=== PATIENT | female | born 1995 ===

== ENCOUNTER 2023-11-07 01:50 | Inpatient (IN) | payer OTHER, SELFPAY ==
[2023-11-07] VITALS (75 sets, daily range): BP systolic 96–156; BP diastolic 45–137; PULSE 32–110; RESP 20; TEMP 36.6–37.4; O2SAT 93–100; BMI 34.4
[2023-11-07] MEDS: LACTATED RINGERS 1,000 ML 125 ML IV CONT ×3 (02:45→05:23)
--- NOTE | 2023-11-07 02:49 | WPDANESEPP ---
Anes - Eval Pre Procedure Procedure: labor epidural Date/Time: 11/07/23 02:49 Surgeon: gilma Preop Diagnosis: pain during labor Pre Op Diagnosis: Labor Patient Data Age: 28 Gender: F Height: 1.52 m Weight: 80 kg Last Vital Signs Pulse 83 11/07/23 02:31 BP 151/104 H 11/07/23 02:31 Allergies Allergy/AdvReac Type Severity Reaction Status Date / Time No Known Allergies Allergy Verified 11/07/23 02:47 Patient hx anesthesia problems: none Family hx anesthesia problems: none Results Review: All pre-operative results and documents have been reviewed as part of the pre-operative evaluation. [facility] Past Medical History Medical History (Updated 11/07/23 @ 02:50 by Loyda John CRNA) Intrauterine Obesity (BMI 30.0-34.9) Exam Day of Procedure 11/07/23 02:49
[2023-11-07 03:04] LABS: Basophils Percent Auto 0.3 % (0.2-1.2); Eosinophils Absolute Auto 0.1 K/mm3 (0-0.3); Eosinophils Percent Auto 0.6 % (0-4.4); Hematocrit 37.6 % (37.0-47.0); Hemoglobin 12.6 g/dL (12.0-15.0); Immature Granulocyte Absolute 0.03 K/mm3 (0.00-0.031); Immature Granulocyte Percent A 0.4 % (0-0.5); Lymphocytes Absolute Auto 1.77 K/mm3 (0.9-3.2); Lymphocytes Percent Auto 22.5 % (18.3-44.2); Mean Corpuscular HGB Conc 33.5 g/dl (32-36); Mean Corpuscular Volume 86.4 fl (80-100); Mean Platelet Volume 10.3 fl (7.4-10.4); Monocytes Absolute Auto 0.6 K/mm3 (0.1-0.6); Monocytes Percent Auto 7.9 % (2.6-8.5); Neutrophils Absolute Auto 5.4 K/mm3 (1.3-6.7); Neutrophils Percent Auto 68.3 % (45.5-73.1); Platelet Count Result 186 k/mm3 (150-375); Red Blood Count 4.35 M/mm3 (4.2-5.4); Red Cell Distribution Width 14.5 % (11.5-14.5); White Blood Count 7.9 K/mm3 (4.5-10.0)
--- NOTE | 2023-11-07 03:25 | LDADM ---
This patient, Rhea Manzano, was admitted to Labor/Delivery/Recovery 105 on 11/07/23 at 01:50. Plans for labor, pain management and were discussed with patient. Patient/family oriented to hospital policies and general routines including ID bracelet, bed and alarms, visiting hours, pain management, procedures, bathroom and other care routines, personal items, smoking policy, room service/diet and guest tray routines, security routines, and visiting hours. Patient/Family are encouraged to report perceived risks to care and to ask questions if they do not understand what they are told or what they should do. See OBIX for further documentation.
--- NOTE | 2023-11-07 08:30 | WPDOBADMIT ---
Obstetrics - Admit Note Admission Note: record reviewed. No pertinent additions to the history and/or any subsequent changes in the physical findings that are not consistent with the expected course of the were found. Additions to the history and/or subsequent changes in the physical findings follow. None. Admitted from home in active labor.
--- NOTE | 2023-11-07 08:31 | PM.OBPNLAB ---
Pain Control Date/time seen: 11/07/23 08:25 Pain control: tolerating well and epidural Comments: Feeling occasional pelvic pressure. Pelvic Exam Dilation (cm): 8 Effacement (%): 90 station: -2 Amniotic membrane status: Bulging Contractions Monitor mode: External Contraction frequency: 3 (2-4) Contraction duration: 90 (90-120) Contraction pattern: Regular Contraction intensity: Strong/Firm Status status: Category ll Comments: Reassured by variability Assessment and Plan Assessment: active labor Plan: continuous present management Comments: CNM to bedside. Discussed plan of care an option for amniotomy. Discussed risks, benefits, and expectations of breaking water. Patient is agreeable. Amniotomy performed and there was a moderate return of clear amniotic fluid. Patient tolerated procedure well. Anticipate vaginal . Dr. Buckley updated.
--- NOTE | 2023-11-07 12:36 | P.PCNOB_ITS ---
OB - Vaginal Delivery Note Procedure Delivery date: 11/07/23 Induction method: None Delivery augmentation: Rupture of Membranes Delivery monitor: External FHT and External Uterine Route of delivery: Episiotomy description: None Laceration Description: Periurethral (right, superficial. Hemostatic.) and Superficial Specimen: No Quantitative Blood Loss (ml): 350 Anesthesia type: Epidural Disposition: Floor Complications: No immediate complications Narrative: Rhea presented to L&D in spontaneous labor. She received an epidural for pain control. Membranes were ruptured at 8cm and she progressed to complete dilation. She began pushing with contractions and made excellent progress. she delivered the head in a very controlled fashion over an intact perineum. There was minimal restitution but with the next push she gradually delivered the anterior shoulder. After the delivery of the posterior shoulder the remainder of the was delivered in a controlled fashion. The infant was placed on the maternal abdomen and dried and stimulated by the nursery staff. After the pulsation of the cord slowed and at the request of the mother the cord was doubly clamped and cut. A cord blood, cord segment, and cord gases were obtained. There is a very superficial right periurethral laceration that was hemostatic and did not require repair. There was excellent uterine tone and hemostasis. All delivery counts correct. Mother and infant skin to skin in the delivery room. [place] Baby Date of : 11/07/23 Time of : 12:18 Weeks of gestation at delivery: 38 Infant gender: Male Weight (pounds): 0 (unavailable at the time of this note) presentation: vertex position: Right Occiput Anterior Placenta delivery description: Spontaneous Cord Vessel Description: 3 Vessels and Delayed Cord Clamping score one minute: 8 score five minutes: 9
--- NOTE | 2023-11-07 12:45 | PM.OBDSVD ---
DS: Admitting Diagnosis Discharge Date 11/09/[address] Morales Thompson <Johanne Quigley CNM - Last Filed: 11/10/23 07:58> 11/09/23 <Theo Thompson MD - Last Filed: 11/09/23 06:21> Admitting Diagnosis 28 y.o. at 38 weeks gestation Spontaneous labor Rubella Non-Immune <Johanne Quigley CNM - Last Filed: 11/10/23 07:58> DS: Discharge Diagnosis Discharge Diagnosis (1) Mother currently breast-feeding: Code(s): Z39.1 - Encounter for care and examination of lactating mother <Johanne Quigley CNM - Last Filed: 11/10/23 07:58> Status: Acute <Johanne Quigley CNM - Last Filed: 11/10/23 07:58> (2) (normal spontaneous vaginal delivery): Code(s): O80 - Encounter for full-term uncomplicated delivery <Johanne Quigley CNM - Last Filed: 11/10/23 07:58> Status: Acute <Johanne Quigley CNM - Last Filed: 11/10/23 07:58> (3) Rubella non-immune status, delivered, current hospitalization: Code(s): O99.892 - Other specified diseases and conditions complicating childbirth; Z28.39 - Other underimmunization status <Johanne Quigley CNM - Last Filed: 11/10/23 07:58> Status: Acute <Johanne Quigley CNM - Last Filed: 11/10/23 07:58> OB - DS: Summary Hospital Course Hospital Course: Uncomplicated <Johanne Quigley CNM - Last Filed: 11/10/23 07:58> OB Procedures : Ultrasound <Johanne Quigley CNM - Last Filed: 11/10/23 07:58> OB Procedures Intrapartum: Spontaneous Vag Delivery <Johanne Quigley CNM - Last Filed: 11/10/23 07:58> OB Procedures: : None <Johanne Quilgey CNM - Last Filed: 11/10/23 07:58> Peripartum Data Delivery Method: Natural Vaginal <Johanne Quigley CNM - Last Filed: 11/10/23 07:58> Laceration Description: Periurethral (right, superficial. Hemostatic.) and Superficial <Johanne Quigley CNM - Last Filed: 11/10/23 07:58> Episiotomy description: None <Johanne Quigley CNM - Last Filed: 11/10/23 07:58> complications: none <Johanne Quigley CNM - Last Filed: 11/10/23 07:58> Time Spent with Patient Time attestation: Total time spent providing and/or coordinating discharge services: <Johanne Quigley CNM - Last Filed: 11/10/23 07:58> DS: Data Data Completed and Pending Labs on day of discharge: Labs from last 24 hours 11/07/23 02:47 WBC 7.9 RBC 4.35 Hgb 12.6 Hct 37.6 MCV 86.4 MCH 29.0 MCHC 33.5 RDW 14.5 Plt Count 186 MPV 10.3 Immature Gran % (Auto) 0.4 Neut % (Auto) 68.3 Lymph % (Auto) 22.5 [place] % (Auto) 7.9 Eos % (Auto) 0.6 Baso % (Auto) 0.3 Lymph # (Auto) 1.77 [place] # (Auto) 0.6 Eos # (Auto) 0.1 Baso # (Auto) 0.0 Abs Immat Gran (auto) 0.03 Absolute Neuts (auto) 5.4 Absolute Nucleated RBC 0.0 Nucleated RBC % 0.0 RPR Pending Blood Type O Positive Antibody Screen Negative <Johanne Quigley CNM - Last Filed: 11/10/23 07:58> Discharge Plan Discharge Attending physician on discharge: Theo Marti <Johanne Quigley CNM - Last Filed: 11/10/23 07:58> Theo Marti <Theo Thompson MD - Last Filed: 11/09/23 06:21> Discharging Clinician: Theo Marti <Johanne Quigley CNM - Last Filed: 11/10/23 07:58> Theo Marti <Theo Thompson MD - Last Filed: 11/09/23 06:21> Patient Disposition: Home, Self-Care <oJhanne Quigley CNM - Last Filed: 11/10/23 07:58> Activity: may shower and pelvic rest <Johanne Quigley CNM - Last Filed: 11/10/23 07:58> may shower and pelvic rest <Theo Thompson MD - Last Filed: 11/09/23 06:21> Diet: as tolerated <Johanne Quigley CNM - Last Filed: 11/10/23 07:58> as tolerated <Theo Thompson MD - Last Filed: 11/09/23 06:21> Wound Care Instructions: follow printed instructions <Johanne Quigley CNM - Last Filed:
[2023-11-07] MEDS: BENZOCAINE 20% AER SPR (*SP) 56 GM CAN 1 SPRAY (14:11)
[2023-11-07] MEDS: WITCH HAZEL 40 PADS 1 PAD (14:11)
--- NOTE | 2023-11-07 14:56 | OBPPTRN ---
Patient transferred to post room # 288 via wheelchair. Support person present. Oriented to unit, room, information board, rooming in, admission packet and security measures. Patient verbalizes understanding.
[2023-11-07] MEDS: ACETAMINOPHEN 325 MG TABLET 650 MG PO (15:13)
[2023-11-07] MEDS: IBUPROFEN 600 MG TABLET PO (19:47)
[2023-11-08 00:44] VITALS: BP 95/55; PULSE 76; RESP 18; TEMP 36.8; O2SAT 99
[2023-11-08 06:09] LABS: Hemoglobin 9.9 g/dL (12.0-15.0)
--- NOTE | 2023-11-08 07:07 | PM.OBPNVD ---
OB - PN: Subj Subjective Date/time seen: 11/08/23 07:07 Patient comments: no complaints and pain well controlled baby status: doing well and nursing well OB - PN: Obj Data Labs 11/08/23 05:55 Labs: Laboratory Results - last 24 hr 11/08/23 05:55 Hgb 9.9 L Hct 31.0 L OB - PN A/P Plan day: 1 Plan: routine care, discharge home and follow up 6 weeks Time Spent With Patient Time: Total time spent is greater than 50% in coordination of care (as documented) at patient's floor/unit and/or counseling patient: Time with patient: less than 15 minutes Exam Const: General: cooperative, healthy appearing and comfortable Nutritional Appearance: average body habitus Orientation/consciousness: oriented to person, oriented to place and oriented to time Resp: Effort & Inspection: normal respiratory effort Cardio: Rate: regular rate Rhythm: regular rhythm Heart sounds: S1 normal heart sound present and S2 normal heart sound present GI: Inspection: normal to inspection
[2023-11-08] MEDS: MULTIVIT/MIN/PREN/FOL AC/IRON TABLET 1 TAB PO (07:16)
[2023-11-08] MEDS: POLYSACCHARIDE IRON COMPLEX 150 MG CAPSULE PO ×2 (07:16→17:03)
[2023-11-08] MEDS: TETANUS,DIPHTHERIA,AC PERTUSSIS ADULT (0.5 ML) BOOSTRIX IM (07:16)
[2023-11-08] MEDS: IBUPROFEN 600 MG TABLET PO (07:16)
[2023-11-08] MEDS: DOCUSATE SODIUM 100 MG CAPSULE PO ×2 (07:16→17:03)
[2023-11-08 07:35] VITALS: BP 98/53; PULSE 69; RESP 18; TEMP 36.8; O2SAT 100
--- NOTE | 2023-11-08 07:55 | WPDANLDPN2 ---
Anes-Prog Note L&D Date/Time: 11/08/23 07:55 Comfortable throughout: labor and delivery Neuraxial method: epidural Epidural/Spinal procedure site: clean & non-tender Neuro status: Neuro function grossly intact. Cardiovascular status: normal Respiratory status: normal Airway patency: baseline Mental status: baseline Post-Op hydration status: normal Vital Signs: Last Vital Signs Temp 36.8 C 11/08/23 00:44 Pulse 76 11/08/23 00:44 Resp 18 11/08/23 00:44 BP 95/55 L 11/08/23 00:44 Pulse Ox 99 11/08/23 00:44 O2 Del Method Room Air 11/07/23 15:05 Pain score (VAS): 0/10 I/O: Intake & Output 11/07/23 11/07/23 11/08/23 15:59 23:59 07:59 Output Total 88 Balance -88 Post-procedural complaints: none Patient feedback: Patient satisfied with anesthetic care.
[2023-11-08 11:53] VITALS: BP 97/51; PULSE 74; RESP 16; TEMP 37.3; O2SAT 100
--- NOTE | 2023-11-08 13:38 | PC.NURSE ---
[id number] Introductions were made, then consulted with patient to assess needs related to . Mother led the conversation with her?plans to feed?her infant, the?experience so far, and shared she called for a bottle 20 minutes ago related to her infant being sleepy and not waking to breastfeed. mother shared that she breastfed her first child for 6 months. Educated mother on the early feeding cues that her infant is demonstrating and we discussed infant may breastfeed even though had just received a bottle 20 minutes ago. Encouraged understanding of the benefits of skin to skin (demonstrating unwrapping and placing upright on her chest), stimulating with massage touch, changing positions to encourage wakefulness, how to watch for early feeding cues, responsive feeding, feeding on demand (aiming for 8-12 times in 24 hours, about every 2-3 hours), milk production, building/maintaining a milk supply, duration of feeding, signs of adequate intake/output and how to record on the feeding sheet. Mother works well with her infant with encouragement and education. demonstrated feeding cues, we reviewed positioning and ear, shoulder, hip alignment, supporting the breast to facilitate a deep latch, asymmetrical latch (off-center), leading with the chin with a big, open, wide gape and body close to mother. Infant latched optimally to the right breast in cross cradle position. Education given to the mother of how to visualize the suckling (with good rocking jaw motion), swallows (dropping of the lower jaw) and how to listen for drinking at the breast (the ka sound). Reviewed protecting the milk supply with pumping if infant is receiving a bottle, calling for assistance with waking infant to breastfeed, and resources for how to request assistance. Infant was able to maintain latch without pain to mother protecting the nipple with optimal positioning and latching. Reviewed comfort measures of healing with a warm, wet washcloth to rinse breast, then leave open to air-dry, good handwashing when or touching the breast/nipples to prevent infection. Mother voiced understanding of skin to skin, stimulating with massage touch, responsive feedings, hand expressed colostrum, talking to infant to encourage if it has been 2 -2.5 hours since the start of the last , to call if does not latch, or if there is discomfort with . Resources used for education were facilitated with the visual educational handouts, tool, mom and baby guide. Inpatient/outpatient resources provided with feeding sheet, name written on the communication board, and the mom/baby guide. Mother voiced understanding of information, demonstrated learning and will call if there is a request for assistance. Reported to the Primary RN.
--- NOTE | 2023-11-08 14:52 | PC.NURSE ---
1435 -Purposefully rounded to assess for needs. Mother shared she just finished her infant on both breasts. She denies pain. Resources are still available if she needs assistance with , waking infant, or pain with . Mother voiced understanding. Reported to the Primary RN.
[2023-11-08 14:56] LABS: Rapid Plasma Reagin Non-Reactive (NonReactive)
[2023-11-08 20:20] VITALS: BP 111/64; PULSE 76; RESP 18; TEMP 36.6
--- NOTE | 2023-11-09 06:21 | PM.OBPNVD ---
OB - PN: Subj Subjective Date/time seen: 11/09/23 06:21 Patient comments: no complaints and pain well controlled baby status: doing well and nursing well OB - PN: Obj Data Labs 11/08/23 05:55 Labs: Laboratory Results - last 24 hr 11/07/23 02:47 RPR Non-reactive OB - PN A/P Plan day: 2 Plan: routine care, discharge home and follow up 6 weeks Time Spent With Patient Time: Total time spent is greater than 50% in coordination of care (as documented) at patient's floor/unit and/or counseling patient: Time with patient: less than 15 minutes Exam Const: General: cooperative, healthy appearing, comfortable and well groomed Nutritional Appearance: average body habitus GI: Inspection: normal to inspection
[2023-11-09 07:45] VITALS: BP 102/58; PULSE 59; RESP 16; TEMP 36.9; O2SAT 99
[2023-11-09] MEDS: MULTIVIT/MIN/PREN/FOL AC/IRON TABLET 1 TAB PO (08:45)
[2023-11-09] MEDS: POLYSACCHARIDE IRON COMPLEX 150 MG CAPSULE PO (08:45)
[2023-11-09] MEDS: LANOLIN (LANSINOH) 7.5 GM CREAM 1 APPLIC TOPICAL (08:45)
[2023-11-09] MEDS: DOCUSATE SODIUM 100 MG CAPSULE PO (08:45)
--- NOTE | 2023-11-09 12:54 | PC.NURSE ---
Patient viewed the discharge video Mother & Baby Care, The First Two Weeks online. Patient was given the opportunity and encouraged to ask questions. Patient verbalized understanding of information shared and has been given the mother/baby guide for home reference.
[2023-11-09] MEDS: MEASLES,MUMPS,RUBELLA VACCINE 0.5 ML VIAL SUB-Q (14:49)
--- NOTE | 2023-11-09 14:55 | PC.NURSE ---
Patient discharged to a No Care Bed due to baby needing to stay for phototherapy.
[2023-11-11 11:28] VITALS: BP 122/69; PULSE 78; RESP 18; TEMP 36.9; O2SAT 98
== END 2023-11-09 14:55 | disposition home or self-care (01) | DRG 807 ==
LOC: ANHLDR 12:47 → ANHOB2 15:27
PROVIDERS: Advanced Practice Midwife; Admitting Provider Obstetrics & Gynecology; Visit Provider Obstetrics & Gynecology
DX: O71.82 Other specified trauma to perineum and vulva (principal); Z37.0 Single live birth; Z3A.38 38 weeks gestation of pregnancy
CPT/HCPCS: 36415; 85014; 85018; 85025; 86592; 86850; 86900; 86901; 90710; 90715; A9270; J2795; J7120